=== PATIENT | male | born 1975 | race African-American/Black ===

== ENCOUNTER 2018-02-05 07:45 | Emergency (ER) | payer BC ==
[2018-02-05] MEDS ORDERED: NORMAL SALINE 1000 ML 1,000 ML IV ONE (08:31)
--- NOTE | 2018-02-05 08:33 | ER Document Report ---
ED Dizziness/Weakness - General Chief Complaint: Dizziness Stated Complaint: LIGHTHEADED Time Seen by Provider: 02/05/18 08:20 Mode of Arrival: Ambulatory Information source: Patient Notes: Patient states that around 730 this morning he was standing up cutting someone' s hair and had an episode where he felt like he would pass out. Patient states the symptoms lasted for about 15 minutes and then resolved. Patient denies any chest pain, headache, abdominal pain or back pain at the time. Patient denies any diaphoresis, nausea vomiting or diarrhea. Patient states that the symptoms made him feel anxious and he felt like his heart rate increased for short time and then resolved. Patient presently denies any complaints. Patient states that he did eat breakfast and has not missed any meals recently. Patient denies any significant medical history. TRAVEL OUTSIDE OF THE [place] IN LAST 30 DAYS: No - HPI Patient complains to provider of: Near-syncope Onset: This morning Onset/Duration: Sudden, Gone Quality of pain: No pain Pain Level: Denies Associated symptoms: Lightheaded. denies: Chest pain, Confused, Diarrhea, Headache, Sweating, Vomiting Baseline gait: Walks w/o assistance - Related Data Allergies/Adverse Reactions: No Known Allergies Allergy (Verified 02/05/18 07:46) Past Medical History - General Information source: Patient - Social History Smoking Status: Never Smoker Frequency of alcohol use: None Drug Abuse: None Occupation: [employer] Lives with: Family Family History: Reviewed & Not Pertinent - Medical History Medical History: Negative Surgical Hx: Negative Review of Systems - Review of Systems Constitutional: No symptoms reported. denies: Fever, Recent illness EENT: No symptoms reported. denies: Blurred vision Cardiovascular: Palpitations, Lightheaded. denies: Chest pain Respiratory: No symptoms reported. denies: Cough, Short of breath Gastrointestinal: No symptoms reported. denies: Abdominal pain, Nausea, Vomiting Genitourinary: No symptoms reported Male Genitourinary: No symptoms reported Musculoskeletal: No symptoms reported. denies: Back pain, Neck pain Skin: No symptoms reported. denies: Rash Hematologic/Lymphatic: No symptoms reported Neurological/Psychological: No symptoms reported. denies: Confusion, Weakness, Lost consciousness, Headaches Physical Exam - Vital signs Vitals: Temp Pulse Resp BP Pulse Ox 98.3 F 79 16 143/77 H 99 02/05/18 07:51 02/05/18 07:51 07/21/18 07:51 02/05/18 07:51 02/05/18 07:51 - General General appearance: Appears well, Alert In distress: None - HEENT Head: Normocephalic, Atraumatic Eyes: Normal Conjunctiva: Normal Eyelashes: Normal Pupils: PERRL Ears: Normal External canal: Normal Tympanic membrane: Normal Nasal: Normal Mouth/Lips: Normal Mucous membranes: Normal Pharynx: Normal Neck: Normal, Supple. No: Lymphadenopathy, Meningismus - Respiratory Respiratory status: No respiratory distress Chest status: Nontender Breath sounds: Normal. No: Rales, Rhonchi, Stridor, Wheezing Chest palpation: Normal - Cardiovascular Rhythm: Regular Heart sounds: S1 appreciated, S2 appreciated Murmur: No - Abdominal Inspection: Normal Distension: No distension Bowel sounds: Normal Tenderness: Nontender Organomegaly: No organomegaly - Back Back: Normal, Nontender. No: CVA tenderness - Extremities General upper extremity: Normal inspection, Nontender, Normal ROM General lower extremity: Normal inspection, Nontender, Normal ROM - Neurological Neuro grossly intact: Yes Cognition: Normal Nogal Coma Scale Eye Opening: Spontaneous Nasir Coma Scale Verbal: Oriented Nasir Coma Scale Motor: Obeys Commands Nogal Coma Scale Total: 15 - Psychological Associated symptoms: Normal affect, Normal mood - Skin Skin Temperature: Warm Skin Moisture: Dry Skin Color: Normal Course - Re-evaluation Re-evalutation: 02/05/18 11:42 Patient continues asymptomatic without any symptoms. Diagnostic evaluation otherwise unremarkable. Patient encouraged to follow-up with ict project manager on an outpatient basis as well as primary care provider. Discussed worsening symptoms that patient should return medially for. - Vital Signs Vital signs: Temp Pulse Resp BP Pulse Ox 98.3 F 62 16 125/76 100 02/05/18 11:32 02/05/18 11:32 02/05/18 11:32 02/05/18 11:32 02/05/18 11:32 - Laboratory Result Diagrams: 02/05/18 08:50 02/05/18 08:50 Laboratory results interpreted by me: 02/05/18 08:50 WBC 3.4 L RDW 14.2 H Lymphocytes % 45.4 H Absolute Neutrophils 1.5 L Labs- Entire Visit 02/05/18 02/05/18 02/05/18 08:50 08:50 08:50 WBC 3.4 L RBC 5.00 Hgb 14.0 Hct 41.7 MCV 83 MCH 28.0 MCHC 33.5 RDW 14.2 H Plt Count 186 Seg Neutrophils % 44.9 Lymphocytes % 45.4 H Monocytes % 7.3 Eosinophils % 1.4 Basophils % 1.0 Absolute Neutrophils 1.5 L Absolute Lymphocytes 1.6 Absolute Monocytes 0.3 Absolute Eosinophils 0.0 Absolute Basophils 0.0 Sodium 144.0 Potassium 4.0 Chloride 104 Carbon Dioxide 27 Anion Gap 13 BUN 18 Creatinine 0.87 Est GFR ( Amer) > 60 Est GFR (Non-Af Amer) > 60 Glucose 96 Calcium 9.4 Magnesium 2.0 TSH 0.61 - Diagnostic Test Radiology reviewed: Image reviewed, Reports reviewed Discharge - Discharge Clinical Impression: Near syncope Condition: Stable Disposition: HOME, SELF-CARE Instructions: Near Syncopal Episode ([facility]) Additional Instructions: Return immediately for any new or worsening symptoms Followup with your primary care provider, call tomorrow to make a followup appointment Follow-up with a ict project manager for further evaluation, call Wednesday for an appointment Forms: Return to Work Referrals: [facility] [Provider Group] - Follow up as needed MERLIN GARRIDO MD [ACTIVE STAFF] - 02/07/18
[2018-02-05 09:02] LABS: ABSOLUTE LYMPHOCYTES (AUTO) 1.6 10^3/uL (0.5-4.7); ABSOLUTE MONOCYTES (AUTO) 0.3 10^3/uL (0.1-1.4); ABSOLUTE NEUT (AUTO) 1.5 10^3/uL (1.7-8.2); EOSINOPHILS % (AUTO) 1.4 % (0-6); HEMATOCRIT 41.7 % (37.9-51.0); LYMPHOCYTES % (AUTO) 45.4 % (13-45); MEAN CORPUSCULAR HGB CONC 33.5 g/dL (32.0-36.0); MEAN CORPUSCULAR VOLUME 83 fl (80-97); MONOCYTES % (AUTO) 7.3 % (3-13); PLATELET COUNT 186 10^3/uL (150-450); RED CELL DISTRIBUTION WIDTH 14.2 % (11.5-14.0); SEGMENTED NEUTROPHILS % (AUTO) 44.9 % (42-78); TOTAL CELLS COUNTED % (AUTO) 100 %; WHITE BLOOD COUNT 3.4 10^3/uL (4.0-10.5)
[2018-02-05 09:28] LABS: ANION GAP 13 (5-19); BLOOD UREA NITROGEN 18 mg/dL (7-20); CALCIUM 9.4 mg/dL (8.4-10.2); CARBON DIOXIDE 27 mmol/L (22-30); CHLORIDE 104 mmol/L (98-107); GLUCOSE 96 mg/dL (75-110)
--- NOTE | 2018-02-05 09:40 | EKG REPORT ---
SEVERITY:- NORMAL ECG - SINUS RHYTHM : Confirmed by: Linda Morel 05-Feb-2018 09:39:49
--- NOTE | 2018-02-05 11:29 | RADIOLOGY REPORT (SQ) ---
EXAM DESCRIPTION: CHEST 2 VIEWS COMPLETED DATE/TIME: 02/05/2018 10:48 am REASON FOR STUDY: near syncope COMPARISON: None. EXAM PARAMETERS: NUMBER OF VIEWS: two views TECHNIQUE: Digital Frontal and Lateral radiographic views of the chest acquired. RADIATION DOSE: NA LIMITATIONS: none FINDINGS: LUNGS AND PLEURA: No opacities, masses or pneumothorax. No pleural effusion. MEDIASTINUM AND HILAR STRUCTURES: No masses or contour abnormalities. HEART AND VASCULAR STRUCTURES: Heart normal size. No evidence for failure. BONES: No acute findings. HARDWARE: None in the chest. OTHER: No other significant finding. IMPRESSION: NO ACUTE RADIOGRAPHIC FINDING IN THE CHEST. TECHNICAL DOCUMENTATION: JOB ID: [id number] [employer]- All Rights Reserved Reading location - IP/workstation name: [email or web address]
[2018-02-05 11:33] VITALS: BP 125/76
== END 2018-02-05 11:52 | disposition home or self-care (01) ==
LOC: ER 07:45
DX: R42 Dizziness and giddiness (principal)
CPT/HCPCS: 93005; 99284; 36415; 83735; 84443; 85025; 80048; 71046; 93010; J7030

== ENCOUNTER → 2020-08-12 | Outpatient (CLI) | payer BC ==
[~2020-08-12] MED LIST: COVID-19 VACCINE (PFIZER)/PF 30 MCG/0.3 ML VIAL IM ONE; EPINEPHRINE INJ/PF 1 MG/1 ML AMPULE IM PRN
== END ==
LOC: EMPHEALTH 11:18
PROVIDERS: ATTEND Internal Medicine
DX: Z23 Encounter for immunization (principal)
CPT/HCPCS: 91300